=== PATIENT | female | born 2005 | race Caucasian/White ===

== ENCOUNTER 2024-03-09 17:24 | Emergency (ER) | payer OTHER ==
[~2024-03-09] VITALS: Ht 157.5 cm; Wt 86.0 kg
[2024-03-09] MEDS: HYDROCODONE/ACETAMINOPHEN 5-325 MG TABLET PO ONE (17:43)
[2024-03-09] MEDS: OxyCODONE HCL 5 MG IR TABLET PO ONE (19:20)
[2024-03-09 19:26] LABS: BASOPHILS % (AUTO) 0.3 % (0.0-2.0); EOSINOPHILS % (AUTO) 0.3 % (1.0-6.0); HEMATOCRIT 39.6 % (36-46); HEMOGLOBIN 12.7 g/dL (12.0-16.0); LYMPHOCYTES # (AUTO) 1.9 K/uL (1.0-4.8); LYMPHOCYTES % (AUTO) 15.2 % (22.0-44.0); MEAN CORPUSCULAR HEMOGLOBIN 29.9 pg (26.0-34.0); MEAN CORPUSCULAR HGB CONC 32.2 G/dL (31.0-37.0); MEAN CORPUSCULAR VOLUME 93 fL (80-100); MONOCYTES # (AUTO) 0.7 K/uL (0.1-1.0); NEUTROPHILS # (AUTO) 9.7 K/uL (1.8-7.7); NEUTROPHILS % (AUTO) 78.2 % (40.0-70.0); PLATELET COUNT (AUTO) 340 K/uL (150-450); RED BLOOD CELL COUNT(AUTO) 4.26 MIL/uL (4.00-5.20); RED CELL DISTRIBUTION WIDTH 14.5 % (11.5-14.5); WHITE BLOOD COUNT (AUTO) 12.3 K/uL (4.5-11.0)
[2024-03-09 19:31] LABS: ANION GAP 10 mmol/L (8-16); CARBON DIOXIDE 26 mmol/L (22-29); CHLORIDE 102 mmol/L (98-107); CREATININE 0.55 mg/dL (0.60-1.30); GLUCOSE,RANDOM 87 mg/dL (70-110); POTASSIUM 4.3 mmol/L (3.5-5.1); SODIUM SERUM 138 mmol/L (136-145); UREA NITROGEN, BLOOD 11 mg/dL (7-18)
[2024-03-09 19:32] LABS: CALCIUM, TOTAL 9.3 mg/dL (8.8-10.5); GLOMERULAR FILTR. RATE CALC > 60 mL/min (>60)
[2024-03-09 19:44] LABS: CREATINE KINASE, TOTAL ONLY 123 U/L (26-192)
[2024-03-09] MEDS ORDERED: HYDR-4072 PO (20:29)
[2024-03-09 20:30] VITALS: BP 139/88; PULSE 88; RESP 20; TEMP 97.9; O2SAT 100
== END 2024-03-09 21:52 | disposition home or self-care (01) ==
LOC: EMS 17:24
DX: S62.347A Nondisplaced fracture of base of fifth metacarpal bone, left hand, initial encounter for closed fracture (principal); S60.222A Contusion of left hand, initial encounter; W23.0XXA Caught, crushed, jammed, or pinched between moving objects, initial encounter; Y93.89 Activity, other specified; Y92.89 Other specified places as the place of occurrence of the external cause; Y99.0 Civilian activity done for income or pay
CPT/HCPCS: 80048; 82550; 85025; 99284